=== PATIENT | male | born 1945 | race Caucasian/White ===

== ENCOUNTER 2020-04-27 16:11 | Emergency (ER) | payer OTHER, MEDICARE ==
[~2020-04-27] VITALS: Ht 185.4 cm; Wt 79.4 kg
[2020-04-27 19:07] LABS: Basophils # (auto) 0 10 ^3/uL (0-0.2); Eosinophils # (auto) 0 10 ^3/uL (0-0.8); Lymphocytes # (auto) 0.9 10 ^3/uL (0.4-5.4); Monocytes # (auto) 0.5 10 ^3/uL (0-1.3); Monocytes % (auto) 5.2 % (0.0-12.0); Neutrophils # (auto) 8.1 10 ^3/uL (1.6-8.6)
[2020-04-27 19:08] LABS: Basophils % (auto) 0.3 % (0.0-2.0); Eosinophils % (auto) 0.5 % (0.0-7.0); Hematocrit 34.3 % (41.0-53.0); Hemoglobin 11.9 g/dL (13.5-17.5); Lymphocytes % (auto) 8.9 % (10.0-50.0); Mean Corpuscular Hemoglobin 26.5 pg (28.0-32.0); Mean Corpuscular Hgb Conc. 34.7 g/dL (32.0-36.0); Mean Corpuscular Volume 76.2 fL (80.0-100.0); Neutrophils % (auto) 85.1 % (37.0-80.0); Nucleated Red Blood Cells % 0.1 %; Platelet Count (auto) 213 10^3/uL (140-450); Red Blood Cells 4.51 10^6/uL (4.5-5.90); Red Cell Distribution Width 19.2 % (11.8-14.3); White Blood Cell 9.5 10^3/uL (4.4-10.8)
[2020-04-27 19:21] LABS: Albumin 3.6 g/dL (3.4-5.0); Anion Gap 4 (5-15); Blood Urea Nitrogen 56 mg/dL (7-18); Calcium 9.4 mg/dL (8.5-10.1); Carbon Dioxide 28 mmol/L (21-32); Chloride 95 mmol/L (98-107); Glucose 115 mg/dL (74-106); Sodium 127 mmol/L (136-145)
[2020-04-27 19:28] LABS: Alanine Aminotransferase 27 U/L (16-61); Alkaline Phosphatase 96 U/L (45-117); Aspartate Aminotransferase 19 U/L (15-37); BUN/Creatinine Ratio 49.1; Bilirubin, Total 0.4 mg/dL (0.2-1.0); GFR African American 80 mL/min; GFR Non-African American 66 mL/min; Total Protein 6.7 g/dL (6.4-8.2)
[2020-04-27 20:10] LABS: INR 0.97 (0.9-1.15); Partial Thromboplastin Time 25.7 sec (23.0-31.2)
[2020-04-27 23:30] VITALS: BP 102/76
[2020-04-27] MEDS ORDERED: SODIUM BICARBONATE 8.4% INJ 50ML SYRINGE IV ONE (23:30)
[2020-04-27] MEDS ORDERED: DEXTROSE (50%) 50ML SYRG IV ONE (23:30)
[2020-04-27] MEDS ORDERED: ALBUTEROL SULF 2.5 MG/0.5ML(0.5%) NEB SOLN NEB ONE (23:30)
[2020-04-27] MEDS ORDERED: InsuLIN REG 1unit/0.01ml Soln (100units/ml) IV ONE (23:30)
[2020-04-27] MEDS ORDERED: FUROSEMIDE 20 MG/2 ML VIAL IV ONE (23:30)
== END 2020-04-28 06:30 | disposition home or self-care (01) ==
LOC: ER 16:11 → EDBD 16:11 → ER 04-28 06:30
DX: U07.1 COVID-19 (principal); E87.5 Hyperkalemia; E11.9 Type 2 diabetes mellitus without complications; I10 Essential (primary) hypertension
CPT/HCPCS: 36415; 71045; 74176; 80053; 82962; 83605; 83735; 83880; 84132; 84484; 85025; 85610; 85730; 87040; 87426; 93005; 94640; 96374; 96375; 99285; J1815; J1940; J7042

== ENCOUNTER 2020-11-22 21:38 | Inpatient (IN) | payer MEDICARE, OTHER ==
[~2020-11-22] VITALS: Ht 182.9 cm; Wt 58.8 kg
[2020-11-22 23:23] LABS: Eosinophils # (auto) 0 10 ^3/uL (0-0.8); Mean Corpuscular Hemoglobin 21.2 pg (28.0-32.0)
[2020-11-22 23:25] LABS: Basophils # (auto) 0 10 ^3/uL (0-0.2); Basophils % (auto) 0.3 % (0.0-2.0); Eosinophils % (auto) 0.3 % (0.0-7.0); Hematocrit 37.5 % (41.0-53.0); Hemoglobin 11.5 g/dL (13.5-17.5); Lymphocytes # (auto) 1.4 10 ^3/uL (0.4-5.4); Lymphocytes % (auto) 9.8 % (10.0-50.0); Mean Corpuscular Hgb Conc. 30.6 g/dL (32.0-36.0); Mean Corpuscular Volume 69.2 fL (80.0-100.0); Monocytes # (auto) 0.6 10 ^3/uL (0-1.3); Monocytes % (auto) 4.2 % (0.0-12.0); Neutrophils # (auto) 12.1 10 ^3/uL (1.6-8.6); Neutrophils % (auto) 85.4 % (37.0-80.0); Nucleated Red Blood Cells % 0.2 %; Red Blood Cells 5.42 10^6/uL (4.5-5.90); White Blood Cell 14.2 10^3/uL (4.4-10.8)
[2020-11-22 23:40] LABS: Albumin 1.8 g/dL (3.4-5.0); Calcium 7.3 mg/dL (8.5-10.1); Magnesium 1.9 mg/dL (1.6-2.6); Potassium 3.7 mmol/L (3.5-5.1)
[2020-11-22 23:42] LABS: BUN/Creatinine Ratio 59.6; INR 1.31 (0.9-1.15)
[2020-11-22 23:47] LABS: Bilirubin, Total 0.5 mg/dL (0.2-1.0); Phosphorus 4.6 mg/dL (2.5-4.90); Total Protein 4.5 g/dL (6.4-8.2)
[2020-11-22 23:48] LABS: Red Cell Distribution Width 21.9 % (11.8-14.3)
[2020-11-23] MEDS ORDERED: FUROSEMIDE 40 MG/4 ML VIAL IV ONE (00:15)
[2020-11-23] MEDS ORDERED: PIPERACILLIN-TAZOB 3.375GM 100 ML IV ONE (01:00)
[2020-11-23 01:08] LABS: Urine Bacteria NONE SEEN /hpf (None Seen); Urine Blood 2+ /uL (Negative); Urine Hyaline Cast FEW /lpf (0 - 2); Urine Mucus FEW (None Seen); Urine Specific Gravity 1.017 (1.001-1.035); Urine WBC 297 /hpf (0 - 3); Urine WBC Clumps PRESENT /hpf (None Seen)
[2020-11-23] MEDS ORDERED: IOHEXOL 300 MG/ML 100ML BOTTLE IJ ONE (01:10)
[2020-11-23] MEDS ORDERED: SODIUM CHLORIDE 0.9% 1,000 ML IV SCH (08:00)
[2020-11-23] MEDS ORDERED: ACETAMINOPHEN 325 MG TAB PO PRN (08:00)
[2020-11-23] MEDS ORDERED: DOCUSATE SOD 100 MG CAP PO PRN (08:00)
[2020-11-23] MEDS: cefTRIAXone 1GM/50ML D5W 50 ML IV SCH (09:26)
[2020-11-23] MEDS: SODIUM CHLORIDE 0.9% 1,000 ML IV SCH (15:52)
[2020-11-23] MEDS ORDERED: LISI-716 PO (17:55)
[2020-11-23] MEDS ORDERED: MYCO500T3 PO (17:55)
[2020-11-23] MEDS ORDERED: FURO40TA4 PO (17:55)
[2020-11-23] MEDS ORDERED: METF-370 PO (17:55)
[2020-11-23] MEDS ORDERED: GABA300C10 PO (17:55)
[2020-11-23] MEDS ORDERED: HYDR1TAB97 PO (17:55)
[2020-11-23] MEDS ORDERED: BISO5TAB44 PO (17:55)
[2020-11-23 18:10] VITALS: BP 132/70
[2020-11-23 22:00] VITALS: BP 109/57
[2020-11-24 05:00] VITALS: BP 122/77
[2020-11-24] MEDS: SODIUM CHLORIDE 0.9% 1,000 ML IV SCH ×2 (05:46→07:49)
[2020-11-24 06:49] LABS: Basophils # (auto) 0 10 ^3/uL (0-0.2); Basophils % (auto) 0.3 % (0.0-2.0); Eosinophils # (auto) 0 10 ^3/uL (0-0.8); Eosinophils % (auto) 0.3 % (0.0-7.0); Monocytes # (auto) 0.6 10 ^3/uL (0-1.3); Nucleated Red Blood Cells % 0.1 %
[2020-11-24 06:52] LABS: Hematocrit 38.5 % (41.0-53.0); Hemoglobin 11.8 g/dL (13.5-17.5); Lymphocytes # (auto) 1.3 10 ^3/uL (0.4-5.4); Lymphocytes % (auto) 8.1 % (10.0-50.0); Mean Corpuscular Hemoglobin 21.5 pg (28.0-32.0); Mean Corpuscular Hgb Conc. 30.7 g/dL (32.0-36.0); Mean Corpuscular Volume 69.9 fL (80.0-100.0); Monocytes % (auto) 3.7 % (0.0-12.0); Neutrophils # (auto) 14.3 10 ^3/uL (1.6-8.6); Neutrophils % (auto) 87.6 % (37.0-80.0); Red Blood Cells 5.51 10^6/uL (4.5-5.90); White Blood Cell 16.3 10^3/uL (4.4-10.8)
[2020-11-24 07:10] LABS: BUN/Creatinine Ratio 71.4; Calcium 7.3 mg/dL (8.5-10.1)
[2020-11-24 07:25] LABS: Red Cell Distribution Width 22.2 % (11.8-14.3)
[2020-11-24 09:00] VITALS: BP 107/62
[2020-11-24] MEDS ORDERED: DEXTROSE 50% SYRINGE 50 ML IV ONE (09:08)
[2020-11-24] MEDS: cefTRIAXone 1GM/50ML D5W 50 ML IV SCH (09:27)
[2020-11-24] MEDS ORDERED: PILO5TAB10 PO (10:55)
[2020-11-24] MEDS ORDERED: ASPI-231 PO (10:55)
[2020-11-24] MEDS ORDERED: ALEN70TA74 PO (10:55)
[2020-11-24] MEDS ORDERED: ASCO500T11 PO (10:55)
[2020-11-24] MEDS ORDERED: CALC-437 PO (10:55)
[2020-11-24] MEDS ORDERED: LISI2.5T47 PO (10:55)
[2020-11-24] MEDS ORDERED: SIMV-8 PO (10:55)
[2020-11-24] MEDS ORDERED: ONDA-144 PO (10:55)
[2020-11-24] MEDS ORDERED: TAMS0.4C36 PO (10:55)
[2020-11-24] MEDS ORDERED: NITR0.4S29 SL (10:55)
[2020-11-24] MEDS ORDERED: CHOL100083 PO (10:55)
[2020-11-24] MEDS: D5W/SOD CHLO 0.9% 1,000 ML IV SCH ×2 (11:02→17:40)
[2020-11-24 13:00] VITALS: BP 135/75
[2020-11-24] MEDS ORDERED: POTASSIUM EFFERVESENT TAB 25 MEQ PO ONE (15:30)
[2020-11-24 17:00] VITALS: BP 106/63
[2020-11-24] MEDS: HYDROcodone-ACET 5/325MG TAB PO PRN (18:43)
[2020-11-24 22:00] VITALS: BP 100/65
[2020-11-25] MEDS: D5W/SOD CHLO 0.9% 1,000 ML IV SCH ×4 (00:20→20:20)
[2020-11-25 05:00] VITALS: BP 120/70
[2020-11-25 09:00] VITALS: BP 97/64
[2020-11-25] MEDS: cefTRIAXone 1GM/50ML D5W 50 ML IV SCH (09:00)
[2020-11-25] MEDS: SPIRONOLACTONE 25 MG TAB PO SCH (10:00)
[2020-11-25] MEDS ORDERED: LOSARTAN POTASSIUM 25 MG TAB PO SCH (10:00)
[2020-11-25] MEDS: ONDANSETRON HCL 4 MG/2 ML VIAL IV PRN (12:09)
[2020-11-25] MEDS: MORPHINE SULF INJ 2 MG/ML SYRINGE 1ML IV PRN ×2 (12:09→23:46)
[2020-11-25 13:11] VITALS: BP 115/69
[2020-11-25] MEDS: HYDROcodone-ACET 5/325MG TAB PO PRN (15:00)
[2020-11-25 16:56] LABS: Albumin 1.5 g/dL (3.4-5.0); Calcium 7.3 mg/dL (8.5-10.1); Potassium 3.2 mmol/L (3.5-5.1)
[2020-11-25 17:00] VITALS: BP 115/57
[2020-11-25 17:00] LABS: Bilirubin, Total 0.6 mg/dL (0.2-1.0); Total Protein 4.6 g/dL (6.4-8.2)
[2020-11-25] MEDS: SACUBITRIL-VALSARTAN 24mg/26mg TAB PO SCH (21:43)
[2020-11-25 22:00] VITALS: BP 134/71
[2020-11-25] MEDS ORDERED: VANCOMYCIN HCL 125MG/5ML ORAL SOL PO ONE (23:30)
[2020-11-26] MEDS: D5W/SOD CHLO 0.9% 1,000 ML IV SCH ×4 (03:00→22:53)
[2020-11-26 05:00] VITALS: BP 103/51
[2020-11-26] MEDS ORDERED: VANCOMYCIN HCL 125MG/5ML ORAL SOL PO SCH (06:00)
[2020-11-26] MEDS: MORPHINE SULF INJ 2 MG/ML SYRINGE 1ML IV PRN ×2 (06:26→21:36)
[2020-11-26] MEDS: SPIRONOLACTONE 25 MG TAB PO SCH (08:53)
[2020-11-26] MEDS: cefTRIAXone 1GM/50ML D5W 50 ML IV SCH (08:53)
[2020-11-26] MEDS: SACUBITRIL-VALSARTAN 24mg/26mg TAB PO SCH ×2 (08:53→21:35)
[2020-11-26 09:00] VITALS: BP 96/58
[2020-11-26] MEDS: VANCOMYCIN HCL 125MG/5ML ORAL SOL PO SCH ×3 (12:31→21:35)
[2020-11-26] MEDS: levoFLOXacin 500MG 100 ML IV SCH (12:31)
[2020-11-26 13:00] VITALS: BP 99/64
[2020-11-26] MEDS: metroNIDAZOLE 500MG/100ML 100 ML IV SCH ×2 (14:00→21:35)
[2020-11-26 17:00] VITALS: BP 111/69
[2020-11-27] MEDS: MORPHINE SULF INJ 2 MG/ML SYRINGE 1ML IV PRN ×3 (03:36→21:54)
[2020-11-27 05:00] VITALS: BP 107/62
[2020-11-27] MEDS: D5W/SOD CHLO 0.9% 1,000 ML IV SCH ×3 (06:13→18:44)
[2020-11-27] MEDS: metroNIDAZOLE 500MG/100ML 100 ML IV SCH ×3 (06:18→21:49)
[2020-11-27] MEDS: VANCOMYCIN HCL 125MG/5ML ORAL SOL PO SCH ×4 (06:22→21:49)
[2020-11-27] MEDS: cefTRIAXone 1GM/50ML D5W 50 ML IV SCH (08:12)
[2020-11-27 09:00] VITALS: BP 107/62
[2020-11-27] MEDS: SPIRONOLACTONE 25 MG TAB PO SCH (10:00)
[2020-11-27] MEDS: levoFLOXacin 500MG 100 ML IV SCH (10:08)
[2020-11-27] MEDS: SACUBITRIL-VALSARTAN 24mg/26mg TAB PO SCH ×2 (10:08→21:49)
[2020-11-27] MEDS: ONDANSETRON HCL 4 MG/2 ML VIAL IV PRN ×2 (12:59→17:49)
[2020-11-27 13:00] VITALS: BP 108/69
[2020-11-27] MEDS: HYDROcodone-ACET 5/325MG TAB PO PRN (15:00)
[2020-11-27 17:00] VITALS: BP 109/77
[2020-11-27] MEDS: LINEZOLID 600MG/300ML 300 ML IV SCH (17:16)
[2020-11-27 22:00] VITALS: BP 110/66
[2020-11-28] MEDS: D5W/SOD CHLO 0.9% 1,000 ML IV SCH ×3 (01:43→20:50)
[2020-11-28] MEDS: LINEZOLID 600MG/300ML 300 ML IV SCH ×2 (04:47→19:03)
[2020-11-28 05:00] VITALS: BP 107/63
[2020-11-28] MEDS: metroNIDAZOLE 500MG/100ML 100 ML IV SCH ×2 (06:00→06:18)
[2020-11-28] MEDS: VANCOMYCIN HCL 125MG/5ML ORAL SOL PO SCH ×4 (06:00→22:08)
[2020-11-28] MEDS: MORPHINE SULF INJ 2 MG/ML SYRINGE 1ML IV PRN ×2 (06:07→20:22)
[2020-11-28 06:39] LABS: White Blood Cell 11.1 10^3/uL (4.4-10.8)
[2020-11-28 06:46] LABS: Hemoglobin 11.6 g/dL (13.5-17.5); Mean Corpuscular Hemoglobin 20.9 pg (28.0-32.0); Mean Corpuscular Hgb Conc. 30.4 g/dL (32.0-36.0); Mean Corpuscular Volume 68.6 fL (80.0-100.0); Red Blood Cells 5.54 10^6/uL (4.5-5.90)
[2020-11-28 06:56] LABS: Albumin 1.2 g/dL (3.4-5.0); BUN/Creatinine Ratio 30.4; Bilirubin, Total 0.5 mg/dL (0.2-1.0); Calcium 7.4 mg/dL (8.5-10.1); Red Cell Distribution Width 21.6 % (11.8-14.3); Total Protein 3.8 g/dL (6.4-8.2)
[2020-11-28 06:57] LABS: Basophils % (manual) 0 (0.0-2.0); Blast Cells 0; Eosinophils % (manual) 0 (0-7); Metamyelocytes % 0; Myelocytes % 0; Promyelocytes % 0; Reactive Lymphocytes 0
[2020-11-28 08:01] LABS: Band Neutrophils % (manual) 2; Lymphocytes % (manual) 7 (10.0-50.0); Monocytes % (manual) 3 (0-12)
[2020-11-28 08:14] LABS: Potassium 2.9 mmol/L (3.5-5.1)
[2020-11-28] MEDS: ONDANSETRON HCL 4 MG/2 ML VIAL IV PRN ×2 (08:30→19:03)
[2020-11-28 09:00] VITALS: BP 114/66
[2020-11-28] MEDS: levoFLOXacin 500MG 100 ML IV SCH (10:00)
[2020-11-28] MEDS: cefTRIAXone 1GM/50ML D5W 50 ML IV SCH (10:08)
[2020-11-28] MEDS: SPIRONOLACTONE 25 MG TAB PO SCH (10:08)
[2020-11-28] MEDS: SACUBITRIL-VALSARTAN 24mg/26mg TAB PO SCH ×2 (10:09→22:08)
[2020-11-28] MEDS: HYDROcodone-ACET 5/325MG TAB PO PRN ×2 (10:20→17:16)
[2020-11-28 13:04] VITALS: BP 117/70
[2020-11-28] MEDS: POTASSIUM CHL 20MEQ/100ML 100 ML IV SCH ×3 (13:29→19:03)
[2020-11-28] MEDS: CEFEPIME 1 GM in NS 0.9% 50 ML IV SCH ×2 (15:50→23:50)
[2020-11-28 17:00] VITALS: BP 99/57
[2020-11-28 21:40] VITALS: BP 110/78
[2020-11-28] MEDS ORDERED: MYCOPHENOLATE 500 MG TAB PO SCH (22:00)
[2020-11-28] MEDS ORDERED: DOCUSATE ORAL LIQUID 100 MG/10 ML UD PO PRN (22:30)
[2020-11-28] MEDS ORDERED: ACETAMINOPHEN 650 mg PER 20.3 mL UD PO PRN (22:30)
[2020-11-28] MEDS: MYCOPHENOLATE 1000mg/5ml ORALsusp 200mg/ml PO SCH (22:45)
[2020-11-29] MEDS: MORPHINE SULF INJ 2 MG/ML SYRINGE 1ML IV PRN ×3 (02:01→17:58)
[2020-11-29] MEDS: D5W/SOD CHLO 0.9% 1,000 ML IV SCH ×4 (04:00→17:49)
[2020-11-29] MEDS: LINEZOLID 600MG/300ML 300 ML IV SCH ×2 (04:24→17:08)
[2020-11-29 04:55] VITALS: BP 123/71
[2020-11-29] MEDS: VANCOMYCIN HCL 125MG/5ML ORAL SOL PO SCH ×4 (06:03→22:27)
[2020-11-29] MEDS: MYCOPHENOLATE 1000mg/5ml ORALsusp 200mg/ml PO SCH ×3 (06:04→22:27)
[2020-11-29] MEDS: SPIRONOLACTONE 25 MG TAB PO SCH (08:50)
[2020-11-29] MEDS: SACUBITRIL-VALSARTAN 24mg/26mg TAB PO SCH ×2 (08:50→22:27)
[2020-11-29] MEDS: CEFEPIME 1 GM in NS 0.9% 50 ML IV SCH ×2 (08:51→15:41)
[2020-11-29 09:00] VITALS: BP 134/84
[2020-11-29] MEDS: ONDANSETRON HCL 4 MG/2 ML VIAL IV PRN ×2 (11:02→17:59)
[2020-11-29 12:46] VITALS: BP 114/71
[2020-11-29] MEDS ORDERED: POTASSIUM EFFERVESENT TAB 25 MEQ GT ONE (15:00)
[2020-11-29 16:52] VITALS: BP 133/85
[2020-11-29 22:00] VITALS: BP 113/91
[2020-11-30] MEDS: D5W/SOD CHLO 0.9% 1,000 ML IV SCH ×4 (00:20→20:20)
[2020-11-30] MEDS: CEFEPIME 1 GM in NS 0.9% 50 ML IV SCH ×3 (00:21→16:46)
[2020-11-30] MEDS: MYCOPHENOLATE 1000mg/5ml ORALsusp 200mg/ml PO SCH ×3 (05:25→21:57)
[2020-11-30] MEDS: LINEZOLID 600MG/300ML 300 ML IV SCH ×2 (05:25→16:46)
[2020-11-30] MEDS: VANCOMYCIN HCL 125MG/5ML ORAL SOL PO SCH ×4 (05:26→21:56)
[2020-11-30 06:00] VITALS: BP 132/80
[2020-11-30 09:00] VITALS: BP 138/68
[2020-11-30] MEDS: SPIRONOLACTONE 25 MG TAB PO SCH (10:38)
[2020-11-30] MEDS: SACUBITRIL-VALSARTAN 24mg/26mg TAB PO SCH ×2 (10:38→21:58)
[2020-11-30] MEDS: ONDANSETRON HCL 4 MG/2 ML VIAL IV PRN ×2 (12:15→17:50)
[2020-11-30] MEDS: MORPHINE SULF INJ 2 MG/ML SYRINGE 1ML IV PRN ×2 (12:15→16:46)
[2020-11-30 13:00] VITALS: BP 132/60
[2020-11-30 13:02] LABS: BUN/Creatinine Ratio 15.2; Calcium 7.8 mg/dL (8.5-10.1); Potassium 3.7 mmol/L (3.5-5.1)
[2020-11-30 16:32] VITALS: BP 114/81
[2020-11-30 22:00] VITALS: BP 144/88
[2020-12-01] MEDS: CEFEPIME 1 GM in NS 0.9% 50 ML IV SCH ×3 (00:11→16:52)
[2020-12-01] MEDS: D5W/SOD CHLO 0.9% 1,000 ML IV SCH ×6 (01:22→23:00)
[2020-12-01] MEDS: LINEZOLID 600MG/300ML 300 ML IV SCH ×2 (04:58→16:52)
[2020-12-01] MEDS: VANCOMYCIN HCL 125MG/5ML ORAL SOL PO SCH ×4 (05:07→20:54)
[2020-12-01] MEDS: MYCOPHENOLATE 1000mg/5ml ORALsusp 200mg/ml PO SCH ×3 (05:07→20:54)
[2020-12-01] MEDS: HYDROcodone-ACET 5/325MG TAB PO PRN ×2 (05:07→20:55)
[2020-12-01 05:36] VITALS: BP 120/82
[2020-12-01] MEDS: SPIRONOLACTONE 25 MG TAB PO SCH (08:54)
[2020-12-01] MEDS: SACUBITRIL-VALSARTAN 24mg/26mg TAB PO SCH ×2 (08:55→20:54)
[2020-12-01 09:00] VITALS: BP 132/89
[2020-12-01] MEDS: ONDANSETRON HCL 4 MG/2 ML VIAL IV PRN (11:16)
[2020-12-01] MEDS: MORPHINE SULF INJ 2 MG/ML SYRINGE 1ML IV PRN (11:16)
[2020-12-01 12:45] VITALS: BP 117/76
[2020-12-01 17:00] VITALS: BP 128/69
[2020-12-01 22:00] VITALS: BP 132/95
[2020-12-02] MEDS: D5W/SOD CHLO 0.9% 1,000 ML IV SCH ×4 (04:12→19:02)
[2020-12-02 05:00] VITALS: BP 132/99
[2020-12-02] MEDS: MYCOPHENOLATE 1000mg/5ml ORALsusp 200mg/ml PO SCH ×3 (05:12→23:57)
[2020-12-02] MEDS: VANCOMYCIN HCL 125MG/5ML ORAL SOL PO SCH ×4 (05:12→23:57)
[2020-12-02] MEDS: LINEZOLID 600MG/300ML 300 ML IV SCH ×2 (05:13→17:00)
[2020-12-02 08:00] VITALS: BP 143/94
[2020-12-02] MEDS: CEFEPIME 1 GM in NS 0.9% 50 ML IV SCH ×5 (08:00→20:00)
[2020-12-02] MEDS: HYDROcodone-ACET 5/325MG TAB PO PRN (09:20)
[2020-12-02] MEDS: ONDANSETRON HCL 4 MG/2 ML VIAL IV PRN ×2 (09:20→17:38)
[2020-12-02] MEDS: SPIRONOLACTONE 25 MG TAB PO SCH (09:56)
[2020-12-02] MEDS: SACUBITRIL-VALSARTAN 24mg/26mg TAB PO SCH ×2 (09:56→23:57)
[2020-12-02 13:00] VITALS: BP 118/75
[2020-12-02 22:00] VITALS: BP 129/83
[2020-12-03] MEDS: MORPHINE SULF INJ 2 MG/ML SYRINGE 1ML IV PRN (00:17)
[2020-12-03] MEDS: D5W/SOD CHLO 0.9% 1,000 ML IV SCH ×3 (02:34→15:00)
[2020-12-03 05:00] VITALS: BP 113/76
[2020-12-03] MEDS: LINEZOLID 600MG/300ML 300 ML IV SCH ×2 (05:43→17:00)
[2020-12-03] MEDS: VANCOMYCIN HCL 125MG/5ML ORAL SOL PO SCH ×4 (05:56→22:00)
[2020-12-03] MEDS: MYCOPHENOLATE 1000mg/5ml ORALsusp 200mg/ml PO SCH ×3 (05:56→22:00)
[2020-12-03 06:04] LABS: Hemoglobin 11.9 g/dL (13.5-17.5)
[2020-12-03 06:06] LABS: Hematocrit 39.7 % (41.0-53.0); Mean Corpuscular Hemoglobin 20.8 pg (28.0-32.0); Mean Corpuscular Hgb Conc. 30.1 g/dL (32.0-36.0); Mean Corpuscular Volume 69.1 fL (80.0-100.0); Red Blood Cells 5.74 10^6/uL (4.5-5.90); White Blood Cell 11.3 10^3/uL (4.4-10.8)
[2020-12-03 06:25] LABS: Potassium 3.9 mmol/L (3.5-5.1)
[2020-12-03 06:37] LABS: Albumin 1.5 g/dL (3.4-5.0); BUN/Creatinine Ratio 17.1; Bilirubin, Total 0.4 mg/dL (0.2-1.0); Total Protein 4.6 g/dL (6.4-8.2)
[2020-12-03 06:58] LABS: Red Cell Distribution Width 21.9 % (11.8-14.3)
[2020-12-03 06:59] LABS: Basophils % (manual) 0 (0.0-2.0); Blast Cells 0; Eosinophils % (manual) 0 (0-7); Metamyelocytes % 0; Myelocytes % 0; Promyelocytes % 0; Reactive Lymphocytes 0
[2020-12-03 09:00] VITALS: BP 168/95
[2020-12-03] MEDS: SPIRONOLACTONE 25 MG TAB PO SCH (10:00)
[2020-12-03] MEDS: FUROSEMIDE 20 MG/2 ML VIAL IV SCH (10:00)
[2020-12-03] MEDS: SACUBITRIL-VALSARTAN 24mg/26mg TAB PO SCH (10:00)
[2020-12-03 10:51] LABS: Band Neutrophils % (manual) 2; Lymphocytes % (manual) 17 (10.0-50.0); Monocytes % (manual) 5 (0-12)
[2020-12-03] MEDS: HYDROcodone-ACET 5/325MG TAB PO PRN (12:40)
[2020-12-03 13:00] VITALS: BP 119/80
[2020-12-03 14:59] VITALS: BP 115/68
[2020-12-03 22:00] VITALS: BP 135/104
[2020-12-04] MEDS: CEFEPIME 1 GM in NS 0.9% 50 ML IV SCH ×2
[2020-12-04] MEDS: SACUBITRIL-VALSARTAN 24mg/26mg TAB PO SCH ×2 (00:39→10:00)
[2020-12-04] MEDS: D5W/SOD CHLO 0.9% 1,000 ML IV SCH ×3 (00:40→11:00)
[2020-12-04 05:00] VITALS: BP 131/99
[2020-12-04] MEDS: LINEZOLID 600MG/300ML 300 ML IV SCH (05:10)
[2020-12-04] MEDS: VANCOMYCIN HCL 125MG/5ML ORAL SOL PO SCH ×2 (06:55→12:00)
[2020-12-04] MEDS: MYCOPHENOLATE 1000mg/5ml ORALsusp 200mg/ml PO SCH (06:55)
[2020-12-04 09:00] VITALS: BP 123/95
[2020-12-04] MEDS: FUROSEMIDE 20 MG/2 ML VIAL IV SCH (10:00)
[2020-12-04] MEDS: SPIRONOLACTONE 25 MG TAB PO SCH (10:00)
== END 2020-12-04 14:35 | disposition short-term general hospital (02) | DRG 871 ==
LOC: EDBD 21:38 → ER 21:42 → OVERFLOW 11-23 07:46 → WEST WING 11-23 16:37 → TELE-WESTW 11-29 01:13
PROVIDERS: ADMIT Hospitalist; ATTEND Family Medicine
DX: A41.9 Sepsis, unspecified organism (principal); G93.41 Metabolic encephalopathy; J18.9 Pneumonia, unspecified organism; E43 Unspecified severe protein-calorie malnutrition; I50.23 Acute on chronic systolic (congestive) heart failure; N39.0 Urinary tract infection, site not specified; I42.9 Cardiomyopathy, unspecified; A04.72 Enterocolitis due to Clostridium difficile, not specified as recurrent; Z20.822 Contact with and (suspected) exposure to COVID-19; R09.02 Hypoxemia; E11.40 Type 2 diabetes mellitus with diabetic neuropathy, unspecified; E11.21 Type 2 diabetes mellitus with diabetic nephropathy; B96.4 Proteus (mirabilis) (morganii) as the cause of diseases classified elsewhere; B95.2 Enterococcus as the cause of diseases classified elsewhere; B96.5 Pseudomonas (aeruginosa) (mallei) (pseudomallei) as the cause of diseases classified elsewhere; B96.89 Other specified bacterial agents as the cause of diseases classified elsewhere; I11.0 Hypertensive heart disease with heart failure; E11.51 Type 2 diabetes mellitus with diabetic peripheral angiopathy without gangrene; L89.159 Pressure ulcer of sacral region, unspecified stage; E11.649 Type 2 diabetes mellitus with hypoglycemia without coma; E87.6 Hypokalemia; Z89.611 Acquired absence of right leg above knee; Z68.23 Body mass index [BMI] 23.0-23.9, adult; Z79.899 Other long term (current) drug therapy
CPT/HCPCS: 36415; 71045; 74177; 80048; 80053; 81001; 82962; 83605; 83735; 83880; 84100; 84484; 85007; 85025; 85027; 85610; 87040; 87077; 87086; 87088; 87186; 87205; 87426; 87493; 93005; 93306; 96365; 96367; 96375; G0378; J0696; J1956; J2405; J2543; J3480; J3490; J7042; J7517